=== PATIENT | male | born 1955 ===

== ENCOUNTER → 2022-03-03 07:01 | Outpatient (CLI) | payer BC, SELFPAY ==
--- NOTE | ~2022-03-03 | MR_ITS ---
EXAMINATION: MR thoracic spine wo con DATE: 03/03/2022 07:38 INDICATION: Thoracic back pain. TECHNIQUE: Magnetic resonance imaging (MRI) of the thoracic spine was performed without intravenous c ontrast. Sagittal localizer T1-weighted FSE of the cervical spine was obtained. Thoracic spine sequen laura included sagittal T2-weighted FSE, sagittal T1-weighted FSE, sagittal T2-weighted FS FSE, and axi al T2-weighted FSE. COMPARISON: None FINDINGS: There is 2 mm retrolisthesis of C6 on C7. There is moderate cervical spondylosis. There are Schmorl's nodes from T6-T7 through L1-L2 with mild chronic anterior wedging of many of these vertebr al bodies. Intervertebral disc heights are normal in thoracic spine. At T5-T6, there is a left centra l protrusion with mild central canal stenosis. There is multilevel mild facet joint osteoarthritis. N o neural foraminal stenosis. The spinal cord signal intensity is normal. IMPRESSION: 1. Mild thoracic spondylosis. Reviewed, dictated and finalized at location [facility]. [facility]
== END ==
PROVIDERS: PCP Internal Medicine; Visit Provider Nurse Practitioner Family
DX: M47.894 Other spondylosis, thoracic region (principal)
CPT/HCPCS: 72146